=== PATIENT | male | born 1975 | race Caucasian/White ===

== ENCOUNTER 2018-04-08 15:09 | Emergency (ER) ==
[2018-04-08 15:14] VITALS: BP 127/86; TEMP 97.5; BMI 23.6
[2018-04-08] MEDS ORDERED: LIDOCAINE HCL 1% SDV SUBCUT STA (15:16)
[2018-04-08] MEDS ORDERED: TENIVAC IM ONE (15:35)
--- NOTE | 2018-04-08 15:38 | ED.PDOC ---
General ED Provider: Dr. MEL MCKEON-ER Chief Complaint: Finger Pain/Injury Stated Complaint: i got a fish hook in my finger Time Seen by Physician: 15:10 Mode of Arrival: Walk-In Information Source: Patient Exam Limitations: No limitations Primary Care Provider: MEL MCKEON Nursing and Triage Documentation Reviewed and Agree: Yes Does patient meet sepsis criteria?: No System Inflammatory Response Syndrome: Not Applicable Sepsis Protocol: For patient's 13 years and over: Temp is 96.8 and below OR 101 and greater Pulse >90 BPM Resp >20/minute Acutely Altered Mental Status Are patient's symptoms suggestive of a new infection, such as: -Pneumonia -Skin, Soft Tissue -Endocarditis -UTI -Bone, Joint Infection -Implantable Device -Acute Abdominal Infection -Wound Infection -Meningitis -Blood Stream Catheter Infection -Unknown Skin Complaint Exam - Skin/Soft Tissue Complaint/Exam Onset/Duration: one hour Symptoms Are: Still present Timing: Constant Initial Severity: Mild Current Severity: Mild Location: right index finger Character: Reports: Painful Aggravating: Reports: Touch Alleviating: Reports: None Associated Signs and Symptoms: Reports: Tenderness Related History: Reports: Foreign body Related Surgical History: Reports: None Recent Exposure to Others w/Similar Symptoms: No Skin Findings: Present: Other Joint Tenderness Present: No Differential Diagnoses: Foreign Body Review of Systems - Review Of Systems Constitutional: Reports: No symptoms Eyes: Reports: No symptoms Ears, Nose, Mouth, Throat: Reports: No symptoms Respiratory: Reports: No symptoms Cardiac: Reports: No symptoms GI: Reports: No symptoms : Reports: No symptoms Musculoskeletal: Reports: No symptoms Skin: Reports: No symptoms Neurological: Reports: No symptoms Endocrine: Reports: No symptoms Hematologic/Lymphatic: Reports: No symptoms All Other Systems: Reviewed and Negative Past Medical History - Past Medical History Previously Healthy: Yes Endocrine: Reports: Unknown Cardiovascular: Reports: Unknown Respiratory: Reports: Unknown Hematological: Reports: Unknown Gastrointestinal: Reports: Unknown Genitourinary: Reports: Unknown Neuro/Psych: Reports: Unknown Musculoskeletal: Reports: Unknown Cancer: Reports: Unknown - Surgical History General Surgical History: Reports: Unknown - Family History Family History: Reports: Unknown - Social History Smoking Status: Former smoker Hx Substance Use: No Alcohol Screening: Heavy - Immunizations Tetanus Shot up to Date: No Physical Exam - Physical Exam Appearance: Well-appearing, No pain distress, Well-nourished Pain Distress: Mild Eyes: TJ, EOMI, Conjunctiva clear ENT: Ears normal Neck: Supple Respiratory: Airway patent, Breath sounds clear, Breath sounds equal, Respirations nonlabored Cardiovascular: RRR, Pulses normal, No rub, No murmur GI/: Soft, Nontender, No masses, Bowel sounds normal, No Organomegaly Musculoskeletal: Normal strength, ROM intact, No edema, No calf tenderness Skin: Warm, Dry, Normal color Neurological: Sensation intact, Motor intact, Reflexes intact, Cranial nerves intact, Alert, Oriented Psychiatric: Affect appropriate, Mood appropriate Procedures - Foreign Body Removal Location of Foreign Object: tip of right index finger Foreign Object: fishhook Depth of Object: superficial Type of Anesthesia: Topical Medication Used: Yes: Lidocaine Prep: Hibiclens Irrigation: No Skin Incised: No Instruments Used: Yes: Forceps Foreign Body Identified and Removed: Yes (tip of danelle pushed through skin and danelle removed with wire cutters---hook r) Critical Care Note - Critical Care Note Total Time (mins): 0 Course - Course Orders, Labs, Meds: Orders Category Date Time Status Lidocaine HCl/Pf [Lidocaine HCl 1% Sdv] MEDS 04/08/18 15:16 Discontinued 5 ml SUBCUT ONCE STA Tetanus and Diphtheria Tox/Pf [Tenivac] MEDS 04/08/18 15:35 Once 0.5 ml IM .ONCE ONE Medications Discontinued Medications Generic Name Dose Route Start Last Admin Trade Name Javi PRN Reason Stop Dose Admin Lidocaine HCl 5 ml 04/08/18 15:16 Lidocaine Hcl 1% Sdv SUBCUT 04/08/18 15:17 ONCE STA Vital Signs: Temp Pulse Resp BP Pulse Ox 04/08/18 15:09 97.5 F L 93 H 20 127/86 98 Departure - Departure Time of Disposition: 15:39 Disposition: HOME SELF-CARE Discharge Problem: Foreign body of finger Instructions: Soft Tissue Foreign Body (ED) Condition: Good Pt referred to PMD for follow-up: Yes IPMP verified?: No Additional Instructions: wash with soap and water twice daily and apply antbx ointment till healed--call me if any signs of infection Allergies/Adverse Reactions: Allergies No Known Allergies Allergy (Unverified 04/08/18 15:15) Home Medications: Ambulatory Orders Amlodipine Bes/Olmesartan Med [Tess 5-20 mg Tablet] 1 each PO BID 04/08/18 Omeprazole Magnesium [Prilosec Otc] 20 mg PO DAILY 04/08/18 Disposition Discussed With: Patient
== END 2018-04-08 15:48 | disposition home or self-care (01) ==
LOC: ED 15:09
DX: S61.240A Puncture wound with foreign body of right index finger without damage to nail, initial encounter (principal); W26.8XXA Contact with other sharp object(s), not elsewhere classified, initial encounter
CPT/HCPCS: 90471; 90714; 96372; 99283